=== PATIENT | female | born 1990 | race Caucasian/White ===

== ENCOUNTER 2018-04-18 12:04 | Observation (INO) | payer MEDICAID ==
[~2018-04-18] VITALS: Ht 175.3 cm; Wt 116.1 kg
[2018-04-18 12:26] VITALS: BP 141/86
[2018-04-18 12:42] VITALS: BP 124/70
--- NOTE | 2018-04-18 13:28 | History & Physical ---
History of Present Illness Age of Patient: 27 : 2 Para or TPAL: 1 EDC per LMP: Aug 28, 2018 Estimated Gestational Age: 21.1 Chief Complaint Lower abdominal pain History of Present Illness Presents to labor and delivery with report of lower abdominal pain this AM above and beyond usual aches and pains. Denies bleeding but describes as cramping. This has received care in various locations: [place] at [facility] and in [place]. Pt just recently moved here. It was conceived non consensually and pt is trying to stay away from [facility]. She has history of PTSD treated with Prozac 20 mg but has not recently been on this. She has not established care here in [place] yet. History Past Medical History: PTSD Prior breast augmentation Prior ovarian drilling for PCOS Allergies: Coded Allergies: No Known Drug Allergies (Unverified , 04/18/18) Review of Systems All Systems Reviewed/Normal: Yes, Except as Noted Gastrointestinal: No Nausea, No Vomiting, Diarrhea (loose stools), No Constipation, Abdominal Pain (central from pubis symphysis to umbilicus) Genitourinary: No Dysuria Exam General Exam General Apperance: Alert/Awake/No Acute Distress Neuro: No Gross deficits ENT: Normal Cardiovascular: Regular Rate and Rhythm Respiratory: No Respiratory Distress, Clear to Auscultation Abdomen: Soft, Non-Tender, Non-Distended, Gravid - Non-Tender Integumentary: Skin Intact without Lesions or Rash Psychological: Alert & Oriented X3, Appropriate Mood & Affect Fetus Heart Tones: 145 Medical Decision Making VTE Prophylasis: Adult Deep Vein Thrombosis/Pulmonary: No Pharmacological Contraindicati: Pt at Low Risk for VTE Mechanical Contraindications: Pt at Low Risk for VTE Assessment and Plan Problems: (1) Threatened labor Assessment & Plan: Will check urine for UTI. Also check u/s for measurements for later care. TV u/s now for cervix length. Problem Qualifiers (1) Threatened labor: Trimester: second trimester Qualified Codes: O47.02 - False labor before 37 completed weeks of gestation, second trimester STEPHON AYERS MD Apr 18, 2018 13:28
[2018-04-18] MEDS ORDERED: FLUO-202 PO (17:05)
[2018-04-18] MEDS ORDERED: PREN-127 PO (17:06)
[2018-04-18] MEDS ORDERED: ACET-1966 PO (17:09)
[2018-04-18 17:22] VITALS: BP 120/80
[2018-04-18] MEDS ORDERED: ACETAMINOPHEN 325 MG TAB ONE (17:32)
[2018-04-18 18:24] VITALS: BP 141/86; Ht 175.3 cm; Wt 116.1 kg
--- NOTE | 2018-04-18 19:51 | RADIOLOGY IMAGING REPORT ---
FACILITY: [facility] [place] PATIENT NAME: Dee Dee Johnston : 1990 MR: [id number] V: [id number] EXAM DATE: ORDERING PHYSICIAN: STEPHON AYERS TECHNOLOGIST: Location: [facility] [place] Patient: Dee Dee Johnston : 1990 Visit/Account:[id number] Date of Sevice: 04/18/2018 OB Ultrasound > 14 weeks limited HISTORY: labor. COMPARISON STUDIES: None available FINDINGS: Intrauterine gestations: one presentation: Variable. Started cephalic and ended in the breech position. heart rate: 144 bpm Amniotic fluid index: 18.6 cm Largest amniotic fluid pocket 6.2 cm Placenta: Posterior right-sided partially fundal. without previa Uterus: gravid, otherwise normal Maternal adnexa: Not evaluated. Cervix: 3.8 cm and closed. There may be mild funneling present. Gestational Parameters: BPD: 5.1 cm 21 weeks and 4 days HC: 19.9 cm 22 weeks and one day AC: 16.0 cm 21 weeks and one day FL: 3.4 cm 20 weeks and 4 days Average ultrasound age (AUA): 21 weeks and 3 days ALLISON: 08/26/2018 by ultrasound and 08/28/2018 clinically. Estimated weight (EFW): 391 g EFW: 36 percentile by last menstrual period. Anatomic Survey: Not performed due to limited exam. IMPRESSION: 1. Single live intrauterine gestation; estimated ultrasound age 21 weeks and 3 days. 2. No acute abnormality. 3. Cervix is closed measuring 3.8 cm. There may be mild funneling present. 4. Placenta is posterior fundal right-sided without focal abnormality. 5. Amniotic fluid index: 18.6 cm Largest amniotic fluid pocket 6.2 cm 6. presentation is varied. Started cephalic and ended breech. 7. Other findings and measurements as above. Report Dictated By: Luis Daniel Joyce at 04/18/2018 4:57 PM Report E-Signed By: Luis Daniel Joyce at 04/18/2018 5:02 PM WSN:[id number]
== END 2018-04-18 17:11 | disposition home or self-care (01) ==
LOC: OB 12:04
PROVIDERS: ADMIT Obstetrics & Gynecology; ATTEND Obstetrics & Gynecology
DX: O47.03 False labor before 37 completed weeks of gestation, third trimester (principal); Z3A.21 21 weeks gestation of pregnancy
CPT/HCPCS: 76817; 81001; G0378; G0379

== ENCOUNTER 2018-05-01 12:21 | Emergency (ER) | payer MEDICAID ==
[2018-04-18 18:24] VITALS: Wt 121.6 kg
[~2018-05-01 12:21] MED LIST: ACET-1966 PO; FLUO-202 PO; PREN-127 PO
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
[2018-05-01] MEDS ORDERED: NS(*) 0.9% 1000 ML BAG 1,000 ML IV ONE (12:55)
[2018-05-01 13:08] LABS: PLATELET COUNT, AUTOMATED 285 K/uL (150-450)
--- NOTE | 2018-05-01 14:31 | EKG ---
FACILITY: [facility] PATIENT NAME: OSCAR CASTELLANOS : [id number] MR: [id number] V: [id number] EXAM DATE: ORDERING PHYSICIAN: LISA GONSALES TECHNOLOGIST: STEVIE Mccarthy Reason : DIZZINESS Blood Pressure : / mmHG Vent. Rate : 090 BPM Atrial Rate : 090 BPM P-R Int : 132 ms QRS Dur : 070 ms QT Int : 374 ms P-R-T Axes : 041 051 031 degrees QTc Int : 457 ms Normal sinus rhythm Normal ECG No previous ECGs available Confirmed by VICTORINO STEARNS ([id number]) on 05/01/2018 8:14:42 PM Referred By: DIDIER Confirmed By:VICTORINO STEARNS
[2018-05-01 15:31] VITALS: BP 122/77
== END 2018-05-01 15:58 | disposition home or self-care (01) ==
LOC: ER 12:32
DX: O26.892 Other specified pregnancy related conditions, second trimester (principal); Z3A.23 23 weeks gestation of pregnancy; R42 Dizziness and giddiness
CPT/HCPCS: 81001; 85025; 93005; 96360; 96361; 99283; J7030; 82040; 82247; 82310; 82374; 82435; 82565; 82947; 84075; 84132; 84155; 84295; 84450; 84460; 84520

== ENCOUNTER 2018-06-12 10:42 | Outpatient (CLI) | payer MEDICAID ==
[~2018-06-12] VITALS: Ht 175.3 cm; Wt 120.2 kg
[2018-06-12 11:23] VITALS: BP 132/81; Ht 175.3 cm; Wt 120.2 kg
[2018-06-12] MEDS ORDERED: VALA500T63 PO (11:23)
== END 2018-06-12 11:51 | disposition home or self-care (01) ==
LOC: OB 10:42 → UNDOADMOB 10:42 → OB 10:42 → L&D 10:42 → UNDODISOB 11:51 → EDSTATUS 06-16 10:54
PROVIDERS: ATTEND Student in an Organized Health Care Education/Training Program
DX: O26.893 Other specified pregnancy related conditions, third trimester (principal); Z3A.29 29 weeks gestation of pregnancy
CPT/HCPCS: 80305; 81001; 84112; G0463; 99213; G0378; G0379